=== PATIENT | male | born 1970 | race Two or more races ===

== ENCOUNTER → 2016-05-16 | Outpatient (CLI) | payer BC ==
[~2016-05-16] MED LIST: ANTIVERT25 MG ORAL; NKM
[2016-05-16 07:57] LABS: BASOPHILS % (AUTO) 0.9 % (0.0-2.0); EOSINOPHILS % (AUTO) 1.8 % (0.0-3.0); LYMPHOCYTES % (AUTO) 38.9 % (20.0-45.0); MEAN CORPUSCULAR HEMOGLOBIN 33.2 PG (27.0-31.0); MEAN CORPUSCULAR HGB CONC 32.1 G/DL (32.0-36.0); MEAN CORPUSCULAR VOLUME 104 FL (80-99); MEAN PLATELET VOLUME 6.8 FL (6.5-10.1); MONOCYTES % (AUTO) 3.8 % (1.0-10.0); NEUTROPHILS % (AUTO) 54.6 % (45.0-75.0); PLATELET COUNT 227 K/UL (150-450); RED BLOOD COUNT 4.39 M/UL (4.70-6.10); RED CELL DISTRIBUTION WIDTH 11.8 % (11.6-14.8); WHITE BLOOD COUNT 5.7 K/UL (4.8-10.8)
[2016-05-16 08:13] LABS: THYROID STIMULATING HORMONE 1.21 uIU/mL (0.300-4.500)
[2016-05-16 08:26] LABS: ALBUMIN/GLOBULIN RATIO 1.3 (1.0-2.7); CALCIUM 9.4 mg/dL (8.6-10.2); CHOLESTEROL/HDL RATIO 2.9 (3.3-4.4); CREATININE 1.5 mg/dL (0.7-1.2); GLOMERULAR FILTRATION RATE 50.4 mL/min (>60); POTASSIUM 4.8 mEQ/L (3.4-4.9); TOTAL PROTEIN 7.5 g/dL (6.6-8.7)
[2016-05-21 09:17] LABS: MERCURY BLOOD QNT 3.2 ug/L (0.0-14.9); TESTOSTERONE TOTAL (LC/MS/MS) 513 ng/dL (.); VITAMIN D 25-OH TOTAL 18 ng/mL (.)
== END | disposition home or self-care (01) ==
LOC: PAN 06:35
DX: Z00.00 Encounter for general adult medical examination without abnormal findings (principal); N40.0 Benign prostatic hyperplasia without lower urinary tract symptoms
CPT/HCPCS: 36415; 80053; 80061; 82306; 82378; 83540; 83550; 83825; 84153; 84403; 84439; 84443; 84630; 85025

== ENCOUNTER → 2016-11-15 | Outpatient (CLI) | payer BC ==
[2016-11-15 17:14] LABS: BILIRUBIN,DIRECT 0.1 mg/dL (0.1-0.3); TOTAL PROTEIN 7.6 g/dL (6.6-8.7)
== END | disposition home or self-care (01) ==
LOC: PAN 15:37
DX: C85.90 Non-Hodgkin lymphoma, unspecified, unspecified site (principal)
CPT/HCPCS: 36415; 80076

== ENCOUNTER 2017-10-04 07:19 | Outpatient (CLI) | payer BC ==
[2017-10-04 08:23] LABS: BASOPHILS % (AUTO) 1.5 % (0.0-2.0); EOSINOPHILS % (AUTO) 2.5 % (0.0-3.0); HEMATOCRIT 44.7 % (42.0-52.0); HEMOGLOBIN 15.1 G/DL (14.2-18.0); LYMPHOCYTES % (AUTO) 27.7 % (20.0-45.0); MEAN CORPUSCULAR VOLUME 88 FL (80-99); MONOCYTES % (AUTO) 11.1 % (1.0-10.0); NEUTROPHILS % (AUTO) 57.2 % (45.0-75.0); PLATELET COUNT 184 K/UL (150-450); RED BLOOD COUNT 5.07 M/UL (4.70-6.10); RED CELL DISTRIBUTION WIDTH 11.8 % (11.6-14.8); WHITE BLOOD COUNT 4.6 K/UL (4.8-10.8)
[2017-10-04 08:45] LABS: ALANINE AMINOTRANSFERASE 82 U/L (12-78); ALBUMIN 4.2 G/DL (3.4-5.0); ALKALINE PHOSPHATASE 66 U/L (46-116); ANION GAP 8 mmol/L (5-15); ASPARTATE AMINO TRANSFERASE 54 U/L (15-37); BILIRUBIN,TOTAL 0.5 MG/DL (0.2-1.0); BLOOD UREA NITROGEN 18 mg/dL (7-18); CALCIUM 9.2 MG/DL (8.5-10.1); CARBON DIOXIDE 29 MMOL/L (21-32); CHLORIDE 102 MMOL/L (98-107); CHOLESTEROL 212 MG/DL (< 200); CREATININE 1.1 MG/DL (0.55-1.30); HDL CHOLESTEROL 67 MG/DL (40-60); LACTATE DEHYDROGENASE 186 U/L (81-234); POTASSIUM 4.1 MMOL/L (3.5-5.1); SODIUM 139 MMOL/L (136-145); TRIGLYCERIDES 65 MG/DL (30-150)
== END 2017-10-04 09:19 | disposition home or self-care (01) ==
LOC: LAB 07:19
DX: N40.0 Benign prostatic hyperplasia without lower urinary tract symptoms (principal)
CPT/HCPCS: 36415; 80053; 80061; 82306; 83615; 84402; 84403; 84439; 84443; 85025